=== PATIENT | female | born 1940 | race Caucasian/White ===

== ENCOUNTER → 2017-07-17 | Outpatient (REF) ==
[~2017-07-17] MED LIST: GLUCOPHAGE500 MG/TAB PO; HCTZ 25MG TAB25 MG PO; PAXIL 20MG20 MG PO; SYNTHROID 0.0.025 MG PO; TIAZAC180 MG PO; ZOCOR 10MG10 MG PO
== END ==
LOC: ZLAB.WCH 17:55
DX: Z01.89 Encounter for other specified special examinations (principal)

== ENCOUNTER 2023-07-27 12:47 | Day surgery (SDC) | payer MEDICARE ==
[~2023-07-27] VITALS: Ht 154.9 cm; Wt 88.6 kg
[~2023-07-27 12:47] MED LIST changes: +CARDIZEM CD 18180 MG PO; +CIPRO 500MG TA500 MG PO; +COLCRYS0.6 MG PO; +GLUCOPHAGE1000 MG PO; +LR 1,000 ML IV SCH; +NORCO 325 MG-51 TAB PO; +PRINIVIL10 MG PO; +ULTRAM 50MG TAB50 MG PO; +ZESTRIL 10MG10 MG PO
[2023-07-27 13:51] VITALS: BP 142/72; PULSE 70; TEMP 98.1
--- NOTE | 2023-07-27 13:55 | NUR ---
1301 Patient ambulatory to bay 8 with a steady gait, breathing even and unlabored. Patient is alert and oriented. Consents reviewed and signed by patient. IV established. LR infusing via gravity at KVO. Call light in reach. Warm blanket provided.
[2023-07-27] MEDS ORDERED: fentaNYL 50 MCG/ML 2 ML VIAL ONE (14:25)
[2023-07-27] MEDS ORDERED: NS 20 ML IV ONE (14:26)
[2023-07-27] MEDS ORDERED: Glycopyrrolate 0.2 MG/ML 1 ML VIAL ONE (14:26)
[2023-07-27] MEDS ORDERED: Lidocaine PF 2% (20 MG/ML) 5 ML VIAL ONE (14:26)
[2023-07-27] MEDS ORDERED: Ondansetron 4 MG/2 ML VIAL ONE ×2 (14:26)
[2023-07-27] MEDS ORDERED: Phenylephrine 10 MG/ML VIAL ONE (14:26)
[2023-07-27] MEDS ORDERED: Lidocaine 2% (20 MG/ML) 20 ML UROJET UR ONE (15:04)
[2023-07-27] MEDS ORDERED: Ketorolac 30 MG/ML VIAL ONE (15:28)
[2023-07-27] MEDS ORDERED: Ondansetron 4 MG/2 ML VIAL IV PRN (15:30)
[2023-07-27] MEDS ORDERED: hydrALAZINE 20 MG/ML 1 ML VIAL IV PRN (15:30)
[2023-07-27] MEDS ORDERED: fentaNYL 50 MCG/ML 2 ML VIAL IV PRN (15:30)
[2023-07-27] MEDS ORDERED: Hyoscyamine 0.125 MG Sublingual TAB SL PRN (15:45)
[2023-07-27] MEDS ORDERED: Ketorolac 15 MG/ML VIAL IV PRN (15:45)
[2023-07-27] MEDS ORDERED: oxyCODONE/Acetaminophen 5-325 MG TAB PO PRN (15:45)
[2023-07-27 16:05] VITALS: BP 155/89; PULSE 74; TEMP 97.4
[2023-07-27 16:20] VITALS: BP 158/88; PULSE 72
--- NOTE | 2023-07-27 16:45 | NUR ---
1605 RETURNS TO ROOM 8 PER CART. AWAKE, ALERT. RESP UNLABORED. HOB ELEVATED 60 DEGREES. ABD SOFT. DENIES PAIN OR URINARY URGENCY. VITAL SIGNS OBTAINED. CALL LIGHT AT SIDE. EILEEN IN ROOM 1620 TOLERATES PO SODA AND MUFFIN WITHOUT NAUSEA 1625 DISCHARGE INSTRUCTIONS REVIEWED. PATIENT VERBALIZES UNDERSTANDING. COPY PROVIDED IN DISCHARGE FOLDER 1635 AMBULATES TO BATHROOM WITH STANDBY ASSIST. ADMITS TO VOIDING WITHOUT DIFFICULTY, LIIGHT PINK URINE, THEN SITS ON EDGE OF CART. DRESSES SELF
[2023-07-27 19:38] VITALS: BP 150/84; PULSE 78; TEMP 97
== END 2023-07-27 16:45 | disposition home or self-care (01) ==
LOC: SDCO 12:47
DX: N20.2 Calculus of kidney with calculus of ureter (principal); N39.0 Urinary tract infection, site not specified; N26.1 Atrophy of kidney (terminal); G47.33 Obstructive sleep apnea (adult) (pediatric)
CPT/HCPCS: C1769; C2617; J0690; J1885; J2371; J2405; J2704; J3010; J7120